=== PATIENT | female | born 1995 | race Caucasian/White ===

== ENCOUNTER 2018-07-12 10:51 | Emergency (ER) | payer MEDICAID, OTHER ==
[2018-07-12 12:12] VITALS: BMI 24.2
[2018-07-12] MEDS ORDERED: Lactated Ringer's 1,000 ML IV ONE (12:15)
--- NOTE | 2018-07-12 13:34 | US ---
Indication: dating, vaginal spotting Comparison: None available Technique: Real-time ultrasound was performed through the pelvis. Findings: There is a single living fetus in cephalic presentation. Amniotic fluid volume is within normal limits, 13.0 cm. Anterior placenta. The placenta is not previa. There are no adnexal masses or cysts evident. Cervix length measures approximately 3.6 cm. The study was performed for the emergent evaluation of vaginal spotting, and the whole anatomic survey of the fetus was not performed. This should be performed on an outpatient elective basis as clinically warranted. Measurements and calculations: Fetus has a composite sonographic age of 32 weeks 2 days. This calculation is based on the biparietal diameter, head circumference, abdominal circumference, and femur length. Estimated heart rate 142.5 beats per min. Estimated weight 1951 g. Impression: Single living fetus with a composite sonographic age of 32 weeks 2 days. Estimated heart rate 142.5 beats per min.
[2018-07-12 13:48] LABS: BASO % 0.3 % (0.0-2.0); EOS # 2.2 K/uL (0.0-0.7); EOS % 18.7 % (0.0-4.0); HEMOGLOBIN 7.5 g/dL (11.0-16.0); LYMPH # 2.2 K/uL (1.0-4.3); MEAN CELL VOLUME 64.3 fL (81.0-99.0); MEAN CORPUSCULAR HEMOGLOBIN 18.9 pg (27.0-31.0); MEAN CORPUSCULAR HGB CONC 29.4 g/dL (33.0-37.0); MEAN PLATELET VOLUME 10.8 fL (7.2-11.7); MONO # 0.5 K/uL (0.0-0.8); MONO % 4.2 % (0.0-10.0); NEUT # 6.8 K/uL (1.8-7.0); NEUT % 57.8 % (50.0-75.0); NRBC % 0.1 % (0.0-2.0); RBC 3.98 Mil/uL (3.80-5.20); RED CELL DISTRIBUTION WIDTH 17.1 % (11.5-14.5); WHITE BLOOD COUNT 11.8 K/uL (4.8-10.8)
[2018-07-12 13:52] LABS: SQUAMOUS EPITHIAL 14 /hpf (0-5); URINE BILIRUBIN NEGATIVE (NEGATIVE); URINE BLOOD 2+ (NEGATIVE); URINE CLARITY Clear (Clear); URINE COLOR Yellow (YELLOW); URINE GLUCOSE (UA) NORMAL (Normal); URINE LEUKOCYTE ESTERASE TRACE Leu/uL (Negative); URINE PROTEIN NEGATIVE (NEGATIVE); URINE UROBILINOGEN NORMAL mg/dL (0.2-1.0)
[2018-07-12 14:07] LABS: ALBUMIN 3.6 g/dL (3.5-5.0); ALT/SGPT 17 U/L (9-52); AST/SGOT 28 U/L (14-36); BLOOD UREA NITROGEN 13 mg/dL (7-17); CALCIUM 8.1 mg/dl (8.6-10.4); GFR NON-AFRICAN AMERICAN > 60
[2018-07-12 14:39] LABS: HEPATITIS B SURFACE AG Negative (NEGATIVE)
--- NOTE | 2018-07-12 16:04 | OBHP ---
Datetime: 07/12/2018 12:06 IP Admit Plan: Discharge home Admit Comment, IP Provider: Patient is a 22 year old at 37w2d by LMP with EMANI 07/31/18 who pre sents to the unit for vaginal spotting that started this AM. She noticed some pink spotting that ting ed the toilet water. It stopped upon arrival to the hospital, and has restarted since coming to the will. The liquid that is now leaking is stickier and does not feel like blood alone. Over the last tw o weeks, she has had 5-10 minutes and pain and noticed small dark red blood clots on her next urinati on. She denies pain, contractions, or ROM. Endorses +FM. Issues: Late care OB Hx: 1. 2013 at 39 weeks, female , unkonwn weight, no complications, 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 Drank 2-3 beers per day on weekends. Stopped juan j th when discovered . Denies ever illicit drug use. Family Hx: unknown PE: see above A/P: This is a 22 year old at 37w2d who presents with vaginal spotting - CEFM and TOCO - LR bolus - UA - US for BPP and dating d/w Dr. Lelia Nair PGY-1 OB addendum: Patient hydrated and given terbutaline IM x 1 dose. Patient re-examined, KASHIF austinange d. Patient anemic, hgb 7.5. OB US dates the patient at 32w2d. We will discharge the patient home with Ferrous sulfate 325mg PO TID and Colace 100mg PO TID. Patient advised to eat foods rich in iron. Pat ient given a script for hematogy referral as well. Patient to follow up with the clinic tomorrow. A c opy of lab work and US report given to the patient. labor precautions given. Plan discussed w ith Dr Rowell. Erinn Jc DO PGY-2 Extremities - PN: Normal Abdomen - PN: Normal Lungs - PN: Normal Heart - PN: Normal Neurologic - PN: Normal HEENT - PN: Normal General - PN: Normal FHR - Baseline A Provider: 135 Membranes, Provider: Intact Contraction Comments Provider: q2-4 minutes Comments, ACOG Physical Exam: Gen: AAOx3 HEENT: EOMI, PERRLA Cardio: RRR, +S1 +S2, no m/r/g Pulm: CTAB, no r/r/w Abd: soft, gravid : scant dried blood, no active discharge Neuro: CN intact, motor/sensation intact Ext: pulses palpable IP Hx Assessment: No Care EGA AdmitDate IP: 36.6 Vital Signs Provider: Within Normal Limits IP Chief Complaint: Vaginal bleeding NICHD Variability Prov Fetus A: Moderate 6-25bpm NICHD Accel Fetus A IP Provider: [id number] FHR Category Provider Fetus A: Category I NICHD Decel Fetus A IP Provider: None Dilatation, Provider: closed Effacement, Provider: thick Station, Provider: high
[2018-07-12 16:10] LABS: RAPID PLASMA REAGIN NONREACTIVE (NONREACTIVE)
[2018-07-13 15:43] VITALS: BP 115/65; PULSE 75; RESP 18; TEMP 97.8; O2SAT 100
== END 2018-07-12 14:39 | disposition home or self-care (01) ==
LOC: C.EROB 10:51
DX: O26.853 Spotting complicating pregnancy, third trimester (principal); O99.013 Anemia complicating pregnancy, third trimester; Z3A.32 32 weeks gestation of pregnancy
CPT/HCPCS: 76815; 76818; 80053; 81001; 85025; 86592; 86703; 86762; 86850; 86900; 87340; 96372; 99284; J3105; J7120

== ENCOUNTER 2018-07-19 11:52 | Outpatient (CLI) | payer SELFPAY | END 2018-07-19 11:53 | disposition home or self-care (01) | LOC: C.LAB 11:52 | DX: Z34.80 Encounter for supervision of other normal pregnancy, unspecified trimester (principal) ==

== ENCOUNTER 2018-08-17 15:19 | Inpatient (IN) | payer MEDICAID, SELFPAY ==
[2018-08-17] MEDS ORDERED: Lactated Ringer's 1,000 ML IV SCH (15:45)
[2018-08-17] MEDS ORDERED: Lactated Ringer's 1,000 ML IV ONE (16:00)
[2018-08-17] MEDS ORDERED: Penicillin G 5 Million Unit Vial IVPB ONE ×2 (16:00→16:27)
[2018-08-17 17:01] LABS: ALB/GLOB RATIO 1.2 (1.0-2.1); ALBUMIN 3.8 g/dL (3.5-5.0); ALT/SGPT 12 U/L (9-52); AST/SGOT 25 U/L (14-36); BLOOD UREA NITROGEN 15 mg/dL (7-17); CALCIUM 9.2 mg/dl (8.6-10.4); GFR NON-AFRICAN AMERICAN > 60
[2018-08-17 17:17] LABS: BASO % 0.3 % (0.0-2.0); EOS # 1.6 K/uL (0.0-0.7); EOS % 13.5 % (0.0-4.0); LYMPH # 2.5 K/uL (1.0-4.3); LYMPH % 21.8 % (20.0-40.0); MEAN CORPUSCULAR HEMOGLOBIN 21.2 pg (27.0-31.0); MEAN CORPUSCULAR HGB CONC 30.3 g/dL (33.0-37.0); MEAN PLATELET VOLUME 9.4 fL (7.2-11.7); MONO # 0.5 K/uL (0.0-0.8); NEUT % 60.4 % (50.0-75.0); NRBC % 0.1 % (0.0-2.0); RBC 4.26 Mil/uL (3.80-5.20); RED CELL DISTRIBUTION WIDTH 28.2 % (11.5-14.5); WHITE BLOOD COUNT 11.6 K/uL (4.8-10.8)
[2018-08-17] MEDS ORDERED: Lidocaine 2% MPF (5 ml) Inj ONE (17:23)
[2018-08-17 17:27] LABS: MEAN CELL VOLUME 70.1 fL (81.0-99.0)
--- NOTE | 2018-08-17 17:32 | OBHP ---
Datetime: 08/17/2018 16:55 FHR - Baseline A Provider: 135 Amniotic Fluid Color, Provider: Clear Membranes, Provider: Ruptured Contraction Comments Provider: q 2min Vital Signs Provider: Reviewed NICHD Variability Prov Fetus A: Moderate 6-25bpm FHR Category Provider Fetus A: Category I NICHD Decel Fetus A IP Provider: None Dilatation, Provider: 6-7 Effacement, Provider: 80 Station, Provider: -1 Datetime: 08/17/2018 15:51 IP Adm Impression: , intrauterine ; Ruptured Membranes IP Admit Plan: Admit to unit; Initiate labor protocol Admit Comment, IP Provider: Patient is a 22 year old at 37w3d EMANI of 09/04/18 by mirna reis, 07/12/18 @ 32w 2d who presents complaining of contractions since last night at 9pm. Pain sca le is 6-7/10 at this moment. Patient also reports having decreased FM since 1:30pm and a gush of flui d since 2:30pm. Patient recieves care at [facility]. Issues: GDMA1 - 1 hr 158, 3hr not performed Chlamydia in - treated Late to care OB Hx: 1. 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 (+) fam h/o DM PE: see above A/P: Patient is a 22 year old at 37w3d who presents grossly ruptured in labor -Will admit to the unit -CEFM and TOCO -Admission labs: CBC, CMP, T+S, UA, UDS, RPR, HIV -GBS unknown - Pen G 5 MMU x 1, Pen G 2.5 MMU q4h until delivery -Lactated ringers at 125cc/hr -Anesthesia on consult for pain control -Anticipate vaginal delivery Plan discussed with Dr Levon Greene DO PGY-2 Attending Note: patient seen, evaluated and examined by me. I agree with the above as documented. Category 1 tracing. patietn is clinically stable Plan: as above. 1) Admit 2) Notify peds of later delivery Presentation-Admit: Vertex Comments, ACOG Physical Exam: VSS Gen: AAOx3, NAD Abdomen: Soft, gravid, fundal height 34cm Ext: no clubbing, cyanosis, edema SVE: 4-5/70/-3 Bedside sonogram: Cepahlic presentation Gestation - Est Wks by US: 37w 3d Nitrazine Provider: Positive IP Hx Assessment: The History has been Reviewed and is Current EGA AdmitDate IP: 42.0 IP Chief Complaint: Suspected ruptured membranes; Decreased movement
[2018-08-17] MEDS ORDERED: Oxycodone/Acetaminophen 5/325 mg Tab PO PRN ×2 (18:49)
--- NOTE | 2018-08-17 20:05 | OBPN ---
Datetime: 08/17/2018 16:55 IP Progress Impression: Normal progression of labor; Reassuring heart rate IP Procedures: Sterile Vag Exam IP Progress Plan: Continue present management; Anticipate Vaginal Delivery Membranes, Provider: Ruptured Amniotic Fluid Color, Provider: Clear Contraction Comments Provider: q 2min FHR - Baseline A Provider: 135 IP Progress Note Comment: Patient seen and examined at bedside. Patient reports feeling vaginal pres sure. States that the contractions are getting stronger. Declines epidural at this time VSS SVE: 6-7/80/-1 A/P: 22 year old at 37w3d in active labor -Continue present management -Anticipate vaginal delivery Plan discussed with Dr Levon Greene DO PGY-2 Attending Note: I agree with the above as documented Vital Signs Provider: Reviewed FHR Category Provider Fetus A: Category I NICHD Variability Prov Fetus A: Moderate 6-25bpm Dilatation, Provider: 6-7 Effacement, Provider: 80 Station, Provider: -1 NICHD Decel Fetus A IP Provider: None Datetime: 08/17/2018 15:51 Nitrazine Provider: Positive Gestation - Est Wks by US: 37w 3d Presentation-Admit: Vertex Datetime: 07/12/2018 12:06 NICHD Accel Fetus A IP Provider: [id number]
--- NOTE | 2018-08-17 20:08 | OBDS ---
DELIVERY PERSONNEL Delivery Doctor: Ramone Dos Santos MD Supervisor Model Making: josé Resident: dr greene MATERNAL INFORMATION Delivery Anesthesia: None Placenta Cultured: Yes Maternal Complications: None RN Comments: liveborn baby girl via nsd 9/9 Provider Comments: This now P2 delivered a viable female via over second degree perineal laceration. 's head was delivered in a controlled manner. No nuchal noted. Infant's shoulders were delivered atraumatically. Cord was clamped and cut. Cord blood collected. Infant was given to [facility] nurse. An intact 3VC placenta was delivered spontaneously. EBL 250 cc. Mom and baby are recover ing in stable condition. Dr Dos Santos was present for entire delivery. Erinn Greene DO PGY-2 Attending Note: present for and participated in the delivery of live female as described ab ove, weight 5lb 12oz, 's 9/9. I agree with the documentaiton of events. Staff Scientist also presen t for the entire duraiton of the delivery; present for immeidate assessment of . LABOR SUMMARY EDC: 09/04/2018 00:00 No. Babies in Womb: 1 Attempted: No Labor Anesthesia: None LABOR INFORMATION Onset of Labor: 08/17/2018 15:35 Complete Dilatation: 08/17/2018 18:00 Oxytocin: N/A Group B Beta Strep: Done, Result Unknown Antibiotics # of Doses: 1 Antibiotics Time of Last Dose: 1626 Steroids Given: None Reason Steroids Not Administered: Not Applicable MEMBRANES Membranes Rupture Method: Spontaneous Rupture of Membranes: 08/17/2018 14:30 Length of Rupture (hrs): 3.70 Amniotic Fluid Color: Clear Amniotic Fluid Amount: Moderate Amniotic Fluid Odor: Normal STAGES OF LABOR Stage 1 hrs: 2 Stage 1 min: 25 Stage 2 hrs: 0 Stage 2 min: 12 Stage 3 hrs: 0 Stage 3 min: 9 Total Time in Labor hrs: 2 Total Time in Labor min: 46 VAGINAL DELIVERY Episiotomy: None Laceration Extension: Second Degree Laceration Type: Perineal Other Laceration: bilat periuretheral lacerations hemostatic, not repaired Laceration Repair: Yes Laceration Repair Note: Second degree perineal laceration repaired with 2-0 chromic suture with leia omic reapproximation. Hemostasis achieved. Initial Vag Sponge Count: 10 Final Vag Sponge Count: 10 Initial Vag Sharps Count: 2 Final Vag Sharps Count: 2 Sponge Count Correct: Yes; Vaginal Sweep Performed Sharps Count Correct: Yes BABY A INFORMATION Infant Delivery Date/Time: 08/17/2018 18:12 Method of Delivery: Vaginal Born in Route : No : N/A Forceps: N/A Vacuum Extraction: N/A Shoulder Dystocia : No SHOULDER DYSTOCIA BABY A Delivery Date/Time: 08/17/2018 18:12 PRESENTATION/POSITION BABY A Presentation: Cephalic Cephalic Presentation: Vertex Breech Presentation: N/A PLACENTA INFORMATION BABY A Placenta Delivery Time : 08/17/2018 18:21 Placenta Method of Delivery: Spontaneous Placenta Status: Delivered SCORES BABY A Heart Rate 1 min: >100 bpm Resp Effort 1 min: Good Cry Reflex Irritability 1 min: Cough or Sneeze or Pulls Away Muscle Tone 1 min: Active Motion Color 1 min: Body [place], Extremities Blue Resuscitation Effort 1 min: N/A SCORE 1 MIN: 9 Heart Rate 5 min: >100 bpm Resp Effort 5 min: Good Cry Reflex Irritability 5 min: Cough or Sneeze or Pulls Away Muscle Tone 5 min: Active Motion Color 5 min: Body [place], Extremities Blue Resuscitation Effort 5 min: N/A SCORE 5 MIN: 9 INFANT INFORMATION BABY A Gestational Age at Delivery: 37.0 Gestational Status: Outcome : Liveborn Condition : Stable Infant Sex: Female IDENTIFICATION/MEDS BABY A ID Band Number: [id number] ID Band Location: Left Leg; Left Arm Sensor Applied: Yes Sensor Number: [id number] Sensor Location : Cord Clamp Vitamin K Given : Not Given Erythromycin Given: Not Given WEIGHT/LENGTH BABY A Birthweight (gms): 2610 Weight (lb): 5 Infant Weight (oz): 12 Infant Length Inches: 18.00 Length cms: 45.7 CORD INFORMATION BABY A No. 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
[2018-08-17 21:19] LABS: SQUAMOUS EPITHIAL 1 /hpf (0-5); URINE BACTERIA FEW (<OCC); URINE BILIRUBIN NEGATIVE (NEGATIVE); URINE BLOOD 3+ (NEGATIVE); URINE COLOR Red (YELLOW); URINE GLUCOSE (UA) NORMAL (Normal); URINE LEUKOCYTE ESTERASE 1+ Leu/uL (Negative); URINE PROTEIN NEGATIVE (NEGATIVE); URINE UROBILINOGEN NORMAL mg/dL (0.2-1.0)
[2018-08-17 21:21] LABS: URINE CLARITY Hazy (Clear)
[2018-08-17 21:27] LABS: BARBITURATES, UR NEGATIVE (NEGATIVE); BENZODIAZEPINES, UR NEGATIVE (NEGATIVE); OPIATES, UR NEGATIVE (NEGATIVE); PHENCYCLIDINE, UR NEGATIVE (NEGATIVE)
[2018-08-17] MEDS: Benzocaine/Menthol 20%-0.5% Topical Spray (60 ml) TOP PRN (21:42)
[2018-08-18 08:27] LABS: BASO % 0.3 % (0.0-2.0); EOS # 0.7 K/uL (0.0-0.7); HEMOGLOBIN 7.9 g/dL (11.0-16.0); NRBC % 0.1 % (0.0-2.0)
[2018-08-18 08:36] LABS: EOS % 4.7 % (0.0-4.0); LYMPH % 13.8 % (20.0-40.0); MEAN CELL VOLUME 69.8 fL (81.0-99.0); MEAN CORPUSCULAR HEMOGLOBIN 21.5 pg (27.0-31.0); MEAN CORPUSCULAR HGB CONC 30.9 g/dL (33.0-37.0); MEAN PLATELET VOLUME 9.4 fL (7.2-11.7); MONO # 0.5 K/uL (0.0-0.8); MONO % 3.2 % (0.0-10.0); NEUT # 11.3 K/uL (1.8-7.0); RBC 3.69 Mil/uL (3.80-5.20); WHITE BLOOD COUNT 14.4 K/uL (4.8-10.8)
--- NOTE | 2018-08-18 10:16 | OBPPN ---
Datetime: 08/18/2018 10:13 PP Pain Prov: Within normal limits PP Nausea Prov: Denies PP Flatus Prov: Yes PP Abdomen/Uterus Prov: Normal PP Lochia Prov: Normal PP Extremities Prov: Normal PP Impression Prov: Normal progression PP Plan Prov: Continue present management PP Progress Note Prov: pt was examinbd at bed side, pain under control,no n/v tolrating dei,voiding, min lochia, voiding ppd#1 s/p re deit cont pain management cont pp cre Vital Signs Provider PP: Reviewed; Within Normal Limits Datetime: 08/18/2018 08:39 PP BM Prov: No PP Heart Prov: Normal PP Lungs Prov: Normal PP Comments Phys Exam Prov: Cardiac: RRR no rubs, gallops, or murmurs Pulmonary exam: CTA b/l regular breathing pattern Abominal exam: Soft, non tender, no rebound tenderness, uterus is firm and located two finger susie dths under the umblicus LE: No peripheral edema present b/l
[2018-08-19 00:23] VITALS: RESP 20
[2018-08-19] MEDS: Benzocaine/Menthol 20%-0.5% Topical Spray (60 ml) TOP PRN (06:37)
[2018-08-19 08:49] LABS: EOS # 1.3 K/uL (0.0-0.7); MONO # 0.5 K/uL (0.0-0.8); WHITE BLOOD COUNT 13.5 K/uL (4.8-10.8)
[2018-08-19 09:14] LABS: BASO % 0.3 % (0.0-2.0); EOS % 9.9 % (0.0-4.0); HEMOGLOBIN 8.9 g/dL (11.0-16.0); LYMPH # 2.6 K/uL (1.0-4.3); LYMPH % 19.5 % (20.0-40.0); MEAN CELL VOLUME 71.3 fL (81.0-99.0); MEAN CORPUSCULAR HEMOGLOBIN 21.6 pg (27.0-31.0); MEAN CORPUSCULAR HGB CONC 30.3 g/dL (33.0-37.0); MONO % 3.8 % (0.0-10.0); NEUT % 66.5 % (50.0-75.0); RBC 4.13 Mil/uL (3.80-5.20); RED CELL DISTRIBUTION WIDTH 28.3 % (11.5-14.5)
--- NOTE | 2018-08-19 14:53 | OBDCSUM ---
Datetime: 08/19/2018 14:29 Discharged to, Provider: Home Follow up at, Provider: [facility] Disch Instr Activity: Normal activity; May Shower Disch Instr Diet: Regular Discharge Diet restrict Prov: none Discharge Instructions, Provider: Routine instructions given Discharge Diagnosis, Provider: Term Delivered Discharge Time: 08/19/2018 14:30 Follow up in weeks, Provider: 1 week Disch Referrals: None Contraception discussed, Prov: Yes Disch Activity Restrictions: No exercising; No lifting; No sexual activity; Nothing in vagina - Inte rcourse, tampons, douche Discharge Diagnosis Prov Other: Limited care Anemia Gestational thrombocytopenia Contraception counseling Contraception after Delivery: Foam/Condoms Datetime: 07/12/2018 14:39 Follow up at, Provider: [facility] Disch Instr Activity: Normal activity; May Shower Discharge Diet restrict Prov: none Discharge Time: 08/19/2018 14:02 Disch Activity Restrictions: No exercising
--- NOTE | 2018-08-19 15:26 | OBPPN ---
Datetime: 08/19/2018 09:20 PP Pain Prov: Within normal limits PP Nausea Prov: Denies PP Flatus Prov: Yes PP BM Prov: Yes PP Breasts Prov: Normal PP Heart Prov: Normal PP Lungs Prov: Normal PP Abdomen/Uterus Prov: Normal PP Lochia Prov: Normal PP Vulva/Perineum Prov: Normal PP CVA Tenderness Prov: Normal PP Extremities Prov: Normal PP C/S Incision Prov: Not Applicable PP Progress Prov: Normal PP Comments Phys Exam Prov: PE: Cardiac: RRR no murmurs, gallops, or rubs Pulmonary: CTA b/l Abdominal: no tenderness to palpations, no rebound tenderness, fundus noted at 4 finger breadths b elow the umbilicus. LE: No peripheral edema PP Impression Prov: Normal progression PP Plan Prov: Discharge PP Progress Note Prov: Patient is a 22y/o female that is status post day 2. Patient was examined at bedside in the am. She was resting comfortably with her baby. She comments that she feels fine with the exception of some pain in her lower abdomen. She categorizes the pain as a 2/10 which she says is an improvement from the previous day. She mentions that she her bleeding has been improvi ng and that she now uses two pads every three hours, as compared to yesterday when she was using a pa d an hour. She has been able to pass stool, but comments that she experienced diarrhea, and has no pr oblems urinating. She has been using formula to feed the baby but intends to use both formula and bandar ast milk in the future. She denies headaches, chest pain, shortness of breath, nausea, vomiting, and dysuria. Vitals and PE: see above Assesment: Patient is a 22y/o female that is status post day 2 at 37 weeks. Plan: Patient discharge pending. Patient is to continue iron supplements. 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 Patient was counseled on following up with her PCP and doing a hematological work up for low plate lets. Patient was counseled on contraception. Plans to use condoms. Patient is to call her doctor or go to the ER if she experiences excrucitating pain, fever, prudence vaginal bleeding Charleen Childers DO PGY1 Serge Gross, OMS-III Attending Note: Patient seen, evalauated and examined by me with the resident earlier in the [facility]. I agree withthe above. Notified by the hematology lab at approximately 0930 hours, platelet count 31K; recommend blue top tube for further analysis/verification. Decision made to consult with [place] Repairer. Same obtained w ith Dr. Jaime Gatica, . Dr. Gatica's recommendation is to confirm platelet count as recomme nded by the lab. It is a common finding of agglutination of RBCs in , and this phenomenon i s exacerbated by the routine CBC collection vial. If normal, nothing else to do. If abnormal, will se e patient. Same performed: platelet count 135K. Also, mild anemia noted; H/H stable at 8.9/29.4. Pat ient encouraged to take iron supplements as prescribed, increase p.o. intake of iron-rich foods. Same discussed with patient using VOYCE ID [id number] Patient is stable for discharge. IP PP Procedures: None Vital Signs Provider PP: Reviewed; Within Normal Limits
[2018-08-19] MEDS ORDERED: Influenza Vaccine 60 mcg/0.5 mL SYR (4YR UP) IM ONE (18:21)
[2018-08-19 23:26] VITALS: BP 106/70; PULSE 99; TEMP 97.6; O2SAT 99
== END 2018-08-19 16:00 | disposition home or self-care (01) | DRG 560 ==
LOC: C.EROB 15:19 → C.4D 15:40 → C.4M 20:25
PROVIDERS: ADMIT Obstetrics & Gynecology; ATTEND Obstetrics & Gynecology
PROC: 0KQM0ZZ Repair Perineum Muscle, Open Approach (ICD-10-PCS; principal; 2018-08-17)
PROC: 10E0XZZ Delivery of Products of Conception, External Approach (ICD-10-PCS; 2018-08-17)
DX: O70.1 Second degree perineal laceration during delivery (principal); D69.59 Other secondary thrombocytopenia; O99.02 Anemia complicating childbirth; Z3A.37 37 weeks gestation of pregnancy; A56.2 Chlamydial infection of genitourinary tract, unspecified; D64.9 Anemia, unspecified; O99.89 Other specified diseases and conditions complicating pregnancy, childbirth and the puerperium; O99.12 Other diseases of the blood and blood-forming organs and certain disorders involving the immune mechanism complicating childbirth; Z37.0 Single live birth